=== PATIENT | male | born 1940 | race Caucasian/White ===

== ENCOUNTER 2017-03-20 14:46 | Emergency (ER) | payer OTHER ==
[2017-03-20 14:54] VITALS: BP 166/108
[2017-03-20] MEDS ORDERED: Sodium Chloride 0.9% 10 ML Syringe FLUSH PRN (14:55)
[2017-03-20] MEDS ORDERED: HYDROmorphone 1 MG/ML Syringe IVPUSH ONE ×2 (14:56→15:37)
[2017-03-20] MEDS ORDERED: HYDROmorphone 1 MG/ML Syringe ONE ×2 (15:15→15:43)
[2017-03-20] MEDS ORDERED: fentaNYL 100 MCG/2 ML SDV IVPUSH ONE ×2 (16:06→16:54)
[2017-03-20] MEDS ORDERED: fentaNYL 100 MCG/2 ML SDV ONE ×2 (16:14→17:01)
--- NOTE | 2017-03-20 16:41 | EDM.PDOC ---
ED HPI GENERAL MEDICAL PROBLEM - General Chief Complaint: Upper Extremity Injury/Pain Stated Complaint: [facility] Time Seen by Provider: 03/20/17 14:52 Source of Information: Reports: Patient, EMS History Limitations: Reports: No Limitations - History of Present Illness INITIAL COMMENTS - FREE TEXT/NARRATIVE: The patient presents with left shoulder and upper arm pain. The patient was lifting a bowl of soup and he felt severe pain. He recently saw Dr Osorio and had an MRI of his shoulder and elbow done. There was about a 6cm sclerotic lesion in humerus. He was put in a sling and Dr Osorio put in a referral to the [facility]. He denies any other injury. Onset: Sudden Duration: Minutes: Location: Reports: Upper Extremity, Left (Shoulder and humerus) Quality: Reports: Sharp Severity: Severe Improves with: Reports: None Worsens with: Reports: None Associated Symptoms: Reports: No Other Symptoms Left Arm Pain Score (Numeric/FACES): 10 - Related Data Allergies Allergy/AdvReac Type Severity Reaction Status Date / Time ciprofloxacin Allergy Cannot Verified 03/20/17 14:54 Remember ibuprofen Allergy Cannot Verified 03/20/17 14:54 Remember Ybwnmqw-Wan-Zut Reductase Allergy Muscle Verified 03/20/17 14:54 Inhibitor Aches Home Meds: Home Meds Aspirin [Adult Low Dose Aspirin EC] 81 mg PO DAILY 05/31/15 [History] Finasteride [Proscar] 5 mg PO DAILY 05/31/15 [History] Metoprolol Tartrate 25 mg PO BID 05/31/15 [History] oxyCODONE HCl/Acetaminophen [Percocet 5-325 mg Tablet] 1 - 2 each PO Q6HR PRN # 20 tablet 03/20/17 [Rx] Past Medical History Cardiovascular History: Reports: [place], Stents Genitourinary History: Reports: Other (See Below) Other Genitourinary History: bladder cancer Musculoskeletal History: Reports: Fracture, Other (See Below) Other Musculoskeletal History: Neck fracture Oncologic (Cancer) History: Reports: Bladder, Other (See Below) Other Oncologic History: 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 Social & Family History - Family History Family Medical History: Noncontributory - Tobacco Use Smoking Status *Q: Never Smoker - Recreational Drug Use Recreational Drug Use: No Review of Systems - Review of Systems Review Of Systems: See Below Constitutional: Reports: No Symptoms Eyes: Reports: No Symptoms Ears: Reports: No Symptoms Nose: Reports: No Symptoms Mouth/Throat: Reports: No Symptoms Respiratory: Reports: No Symptoms Cardiovascular: Reports: No Symptoms GI/Abdominal: Reports: No Symptoms Genitourinary: Reports: No Symptoms Musculoskeletal: Reports: Shoulder Pain, Arm Pain Skin: Reports: No Symptoms Neurological: Reports: No Symptoms ED EXAM, GENERAL - Physical Exam Exam: See Below Exam Limited By: No Limitations General Appearance: Alert, No Apparent Distress Ears: Normal External Exam Nose: Normal Inspection Head: Atraumatic, Normocephalic Neck: Normal Inspection Respiratory/Chest: No Respiratory Distress, Lungs Clear, Normal Breath Sounds Cardiovascular: Regular Rate, Rhythm, No Edema, No Murmur GI/Abdominal: Soft, Non-Tender, No Organomegaly, No Mass Extremities: Other (Pain upon palpation to the left shoulder and proximal humerus. Good sensation and pulses distally.) Course - Vital Signs Last Recorded V/S: Last Vital Signs Temp 98.6 F 03/20/17 14:50 Pulse 76 03/20/17 14:50 Resp 24 H 03/20/17 14:50 BP 166/108 H 03/20/17 14:50 Pulse Ox 98 03/20/17 14:50 - Orders/Labs/Meds Orders: Active Orders 24 hr Category Date Time Status Cardiac Monitoring [RC] . DIRECTED Care 03/20/17 14:55 Active Peripheral IV Care [RC] . DIRECTED Care 03/20/17 14:55 Active Shoulder Comp Lt [CR] Stat Exams 03/20/17 15:07 Taken Sodium Chloride 0.9% [Saline Flush] Med 03/20/17 14:55 Active 10 ml FLUSH ASDIRECTED PRN Peripheral IV Insertion Adult [OM.PC] Stat Oth 03/20/17 14:55 Ordered Medication Orders Sodium Chloride (Saline Flush) 10 ml FLUSH ASDIRECTED PRN PRN Reason: Keep Vein Open Last Admin: 03/20/17 17:24 Dose: 10 ml Labs: Laboratory Tests 03/20/17 03/20/17 Range/Units 14:50 14:50 WBC 8.37 (4.23-9.07) K/mm3 RBC 5.09 (4.63-6.08) M/mm3 Hgb 15.2 (13.7-17.5) gm/L Hct 44.3 (40.1-51.0) % MCV 87.0 (79.0-92.2) fl MCH 29.9 (25.7-32.2) pg MCHC 34.3 (32.2-35.5) g/dl RDW Std Deviation 42.4 (35.1-43.9) fL Plt Count 192 (163-337) K/mm3 MPV 11.5 (9.4-12.3) fl Neut % (Auto) 68.9 H (34.0-67.9) % Lymph % (Auto) 20.2 L (21.8-53.1) % Orange % (Auto) 8.8 (5.3-12.2) % Eos % (Auto) 1.3 (0.8-7.0) Baso % (Auto) 0.4 (0.1-1.2) % Neut # (Auto) 5.77 H (1.78-5.38) K/mm3 Lymph # (Auto) 1.69 (1.32-3.57) K/mm3 Orange # (Auto) 0.74 (0.30-0.82) K/mm3 Eos # (Auto) 0.11 (0.04-0.54) K/mm3 Baso # (Auto) 0.03 (0.01-0.08) K/mm3 Sodium 136 (136-145) mEq/L Potassium 4.6 (3.5-5.1) mEq/L Chloride 103 (98-107) mEq/L Carbon Dioxide 18 L (21-32) mEq/L Anion Gap 19.6 H (5-15) BUN 26 H (7-18) mg/dL Creatinine 1.5 H (0.7-1.3) mg/dL Est Cr Clr Drug Dosing 45.27 mL/min Estimated GFR (MDRD) 45 (>60) mL/min BUN/Creatinine Ratio 17.3 (14-18) Glucose 120 H (83-115) mg/dL Calcium 9.5 (8.5-10.1) mg/dL Total Bilirubin 0.5 (0.2-1.0) mg/dL AST 17 (15-37) U/L ALT 26 (16-63) U/L Alkaline Phosphatase 68 (46-116) U/L Total Protein 7.5 (6.4-8.2) g/dl Albumin 4.2 (3.4-5.0) g/dl Globulin 3.3 gm/dL Albumin/Globulin Ratio 1.3 (1-2) Meds: Medications Generic Name Dose Route Start Last Admin Trade Name Freq PRN Reason Stop Dose Admin Sodium Chloride 10 ml 03/20/17 14:55 03/20/17 17:24 Saline Flush FLUSH 10 ml ASDIRECTED PRN Administration Keep Vein Open Discontinued Medications Generic Name Dose Route Start Last Admin Trade Name Freq PRN Reason Stop Dose Admin Diazepam 5 mg 03/20/17 17:03 03/20/17 17:19 Valium IVPUSH 03/20/17 17:04 5 mg ONETIME ONE Administration Fentanyl Confirm 03/20/17 16:14 03/20/17 17:25 Sublimaze Administered 03/20/17 16:15 Not Given Dose 100 mcg .ROUTE .STK-MED ONE Fentanyl 100 mcg 03/20/17 16:06 03/20/17 16:11 Sublimaze IVPUSH 03/20/17 16:07 100 mcg ONETIME ONE Administration Fentanyl 100 mcg 03/20/17 16:54 03/20/17 16:58 Sublimaze IVPUSH 03/20/17 16:55 100 mcg ONETIME ONE Administration Fentanyl Confirm 03/20/17 17:01 03/20/17 17:55 Sublimaze Administered 03/20/17 17:02 Not Given Dose 100 mcg .ROUTE .STK-MED ONE Hydromorphone HCl Confirm 03/20/17 15:15 03/20/17 17:23 Dilaudid Administered 03/20/17 15:16 Not Given Dose 1 mg .ROUTE .STK-MED ONE Hydromorphone HCl Confirm 03/20/17 15:43 03/20/17 17:24 Dilaudid Administered 03/20/17 15:44 Not Given Dose 1 mg .ROUTE .STK-MED ONE Hydromorphone HCl 1 mg 03/20/17 14:56 03/20/17 15:17 Dilaudid IVPUSH 03/20/17 14:57 1 mg ONETIME ONE Administration Hydromorphone HCl 1 mg 03/20/17 15:37 03/20/17 15:41 Dilaudid IVPUSH 03/20/17 15:38 1 mg ONETIME ONE Administration - Re-Assessments/Exams Free Text/Narrative Re-Assessment/Exam: 03/20/17 15:44 I ordered an IV saline lock, dilaudid 1mg IV, labs and an x-ray. His x-ray shows a fracture through the sclerotic lesion. He is having more pain. I ordered some more dilaudid. I called Dr Osorio and he recommended a shoulder immobilizer and see his primary care doctor to check on the referral. 03/20/17 17:09 The patient still had pain so I ordered fentanyl 100mcg IV and he needed another dose after getting the shoulder immobilizer on of 100mcg of fentanyl. He still had more pain and what seemed like muscle spasms. I ordered some valium 5mg IV. I am having a tough time controlling his pain. He may need to be admitted for pain control. 03/20/17 18:16 He is doing much better and Dr Deleon came to talk to the patient and he would like to go home. I will give him a prescription for dilaudid. 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 Take the percocet as needed for pain. Follow up with your doctor within 3 days or within a week. Call them tomorrow and see when you can see them and if they did the referral to [facility]. Please return if you are worse. - My Orders Last 24 Hours: My Active Orders 03/20/17 14:55 Cardiac Monitoring [RC] . DIRECTED Peripheral IV Care [RC] . DIRECTED Sodium Chloride 0.9% [Saline Flush] 10 ml FLUSH ASDIRECTED PRN Peripheral IV Insertion Adult [OM.PC] Stat 03/20/17 15:07 Shoulder Comp Lt [CR] Stat - Assessment/Plan Last 24 Hours: My Active Orders 03/20/17 14:55 Cardiac Monitoring [RC] . DIRECTED Peripheral IV Care [RC] . DIRECTED Sodium Chloride 0.9% [Saline Flush] 10 ml FLUSH ASDIRECTED PRN Peripheral IV Insertion Adult [OM.PC] Stat 03/20/17 15:07 Shoulder Comp Lt [CR] Stat
--- NOTE | 2017-03-21 07:22 | CR ---
Left shoulder: Three views of left shoulder were obtained. Comparison: No prior study. Fracture identified within the proximal one third diaphysis of the humerus. Questionable lucency around this fracture line is seen and fracture may be pathologic. Minimal displacement and angulation is noted. No additional abnormality is seen. Impression: 1. Fracture within the proximal one third diaphysis of the humerus. Questionable lucency around the fracture line raising the possibility of pathologic fracture. Diagnostic code #9
== END 2017-03-20 18:35 | disposition home or self-care (01) ==
LOC: JD.ED 14:46
DX: M84.522A Pathological fracture in neoplastic disease, left humerus, initial encounter for fracture (principal); Z88.1 Allergy status to other antibiotic agents; Z88.8 Allergy status to other drugs, medicaments and biological substances; Z79.82 Long term (current) use of aspirin; Z79.899 Other long term (current) drug therapy
CPT/HCPCS: 36415; 73030; 80053; 85025; 96374; 96375; 96376; 99284; J1170; J3010; J3360; J7050

== ENCOUNTER 2017-10-18 10:33 | Day surgery (SDC) | payer MEDICARE, OTHER ==
[~2017-10-18 10:33] MED LIST: Cefuroxime 10 MG/ML SYRINGE EYERT SCH; Lidocaine 1% PF 2 ML SDV INJECT SCH; Phenylephrine 2.5% Ophth Soln 2 ML Bot EYERT SCH; Pilocarpine 4% Ophth Soln 15 ML Bot EYERT SCH
[2017-10-18] MEDS: Polymyxin B/Trimethoprim 10 ML Bottle EYERT SCH ×3 (11:48→13:38)
[2017-10-18] MEDS: Brimonidine 0.2% Ophth Soln 5 ML Bottle EYERT SCH ×3 (11:54→13:38)
[2017-10-18] MEDS: Phenylephrine 2.5% Ophth Soln 15 ML Bot EYERT SCH ×9 (12:02→13:24)
[2017-10-18] MEDS: Tropicamide 1% Ophth Soln 15 ML Bottle EYERT SCH ×4 (12:09→13:08)
--- NOTE | 2017-10-18 12:24 | PCM.PREANE ---
Preanesthetic Assessment - Anesthesia/Transfusion/Family Hx Anesthesia History: Prior Anesthesia Without Reaction Family History of Anesthesia Reaction: No - Review of Systems General: No Symptoms Pulmonary: No Symptoms, Other (Spot on lung, positive for Cancer, on chemotherapy. ) Cardiovascular: No Symptoms, Other (Stents x2 in 2016, follows with cardiology, denies any episodes of chest pain. ) Gastrointestinal: Decreased Appetite (From chemo, unable to taste. ) Neurological: No Symptoms Other: Reports: None - Physical Assessment NPO Status Date: 10/17/17 NPO Status Time: 20:00 O2 Sat by Pulse Oximetry: 99 Respiratory Rate: 16 Vital Signs: Last Vital Signs Temp 36.6 C 10/18/17 11:41 Pulse 68 10/18/17 11:41 Resp 16 10/18/17 11:41 BP 147/76 H 10/18/17 11:41 Pulse Ox 99 10/18/17 11:41 Height: 1.83 m Weight: 82.1 kg ASA Class: 3 Mental Status: Alert & Oriented x3 Airway Class: Mallampati = 1 Dentition: Reports: Partial (Upper), Missing Tooth/Teeth, Caries Thyro-Mental Finger Breadths: 3 Mouth Opening Finger Breadths: 3 ROM/Head Extension: Limited/Partial (Neck fracture/surgery. Limited extension.) Lungs: Clear to Auscultation, Normal Respiratory Effort Cardiovascular: Regular Rate, Regular Rhythm - Allergies Allergies/Adverse Reactions: Allergies Allergy/AdvReac Type Severity Reaction Status Date / Time ciprofloxacin Allergy Cannot Verified 10/17/17 12:08 Remember ibuprofen Allergy Cannot Verified 10/17/17 12:08 Remember niacin Allergy Cannot Verified 10/17/17 12:08 Remember oxycodone Allergy Cannot Verified 10/17/17 12:08 Remember Juxizxq-Hpp-Ljn Reductase AdvReac Muscle Verified 10/17/17 12:14 Inhibitor Aches - Anesthesia Plan Beta Lashon: Metoprolol Med Last Dose Date: 10/18/17 Med Last Dose Time: 05:30 - Acknowledgements Anesthesia Type Planned: MAC Pt an Appropriate Candidate for the Planned Anesthesia: Yes Alternatives and Risks of Anesthesia Discussed w Pt/Guardian: Yes Pt/Guardian Understands and Agrees with Anesthesia Plan: Yes PreAnesthesia Questionnaire Cardiovascular History: Reports: [place], Stents Genitourinary History: Reports: Other (See Below) Other Genitourinary History: bladder cancer Musculoskeletal History: Reports: Fracture, Other (See Below) Other Musculoskeletal History: Neck fracture Oncologic (Cancer) History: Reports: Bladder, Other (See Below) Other Oncologic History: 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 - HOME MEDS Home Medications: Home Meds Aspirin 81 mg PO DAILY 10/17/17 [History] Erlotinib HCl [Tarceva] 150 mg PO DAILY 10/17/17 [History] Finasteride 5 mg PO DAILY 10/17/17 [History] Metoprolol Tartrate 25 mg PO BID 10/17/17 [History] - CURRENT (IN HOUSE) MEDS Current Meds: Current Medications Brimonidine Tartrate (Alphagan 0.2% Ophth Soln) 0 ml EYERT ASDIRECTED JORGE Stop: 10/18/17 18:00 Last Admin: 10/18/17 11:54 Dose: 1 drop Cefuroxime Sodium (Zinacef) 0 mg EYERT ASDIRECTED JORGE Stop: 10/18/17 18:00 Lidocaine HCl (Xylocaine-Mpf 1%) 0 ml INJECT ASDIRECTED JORGE Stop: 10/18/17 18:00 Phenylephrine HCl (Jm-Synephrine 2.5% Ophth Soln) 0 ml EYERT ASDIRECTED JORGE Stop: 10/18/17 18:00 Last Admin: 10/18/17 12:10 Dose: 1 drop Pilocarpine HCl (Pilocar 4% Ophth Soln) 0 ml EYERT ASDIRECTED JORGE Stop: 10/18/17 18:00 Polymyxin/Trimethoprim Sulfate (Polytrim Ophth Soln) 0 ml EYERT ASDIRECTED JORGE Stop: 10/18/17 18:00 Last Admin: 10/18/17 11:48 Dose: 1 drop Tetracaine HCl (Tetracaine 0.5% Steri-Unit Desi) 0 ml EYERT ASDIRECTED JORGE Stop: 10/18/17 18:00 Tropicamide (Mydriacyl 1% Ophth Soln) 0 ml EYERT ASDIRECTED JORGE Stop: 10/18/17 18:00 Discontinued Medications Phenylephrine HCl (Jm-Synephrine 2.5% Ophth Soln) 0 ml EYERT ASDIRECTED JORGE Stop: 10/18/17 18:00
[2017-10-18] MEDS: Tetracaine HCl/PF 0.5% 4 ML Bottle EYERT SCH ×2 (13:14→13:29)
--- NOTE | 2017-10-18 13:42 | PCM48HPAN ---
Post Anesthesia Note - EVALUATION WITHIN 48HRS OF ANESTHETIC Vital Signs in Normal Range: Yes Patient Participated in Evaluation: Yes Respiratory Function Stable: Yes Airway Patent: Yes Cardiovascular Function Stable: Yes Hydration Status Stable: Yes Pain Control Satisfactory: Yes Nausea and Vomiting Control Satisfactory: Yes Mental Status Recovered: Yes Pulse Rate: 69 SaO2: 100 Resp Rate: 20 Temperature: 36 C Blood Pressure: 124/79
[2017-10-18 13:54] VITALS: BP 123/78
== END 2017-10-18 13:49 | disposition home or self-care (01) ==
LOC: JD.SDS 10:33
PROVIDERS: ATTEND Ophthalmology
DX: H25.811 Combined forms of age-related cataract, right eye (principal); H40.003 Preglaucoma, unspecified, bilateral; H16.103 Unspecified superficial keratitis, bilateral; H16.221 Keratoconjunctivitis sicca, not specified as Sjogren's, right eye; E78.00 Pure hypercholesterolemia, unspecified; I25.10 Atherosclerotic heart disease of native coronary artery without angina pectoris; K21.9 Gastro-esophageal reflux disease without esophagitis; Z79.82 Long term (current) use of aspirin; Z79.899 Other long term (current) drug therapy; Z88.1 Allergy status to other antibiotic agents; Z88.5 Allergy status to narcotic agent; Z88.8 Allergy status to other drugs, medicaments and biological substances; Z98.42 Cataract extraction status, left eye; Z96.1 Presence of intraocular lens; Z87.891 Personal history of nicotine dependence
CPT/HCPCS: 66984; C1780; J0697; A9270-GY; J2001